=== PATIENT | male | born 2000 | race Caucasian/White ===

== ENCOUNTER 2023-11-04 22:38 | Emergency (ER) | payer MEDICAID ==
[~2023-11-04] VITALS: Ht 182.9 cm; Wt 91.0 kg
[2023-11-04 22:47] VITALS: BP 110/66; TEMP 99.4; O2SAT 100
[2023-11-04 22:51] VITALS: PULSE 80; RESP 20
[2023-11-04 23:27] LABS: BASOPHILS % 0.3 % (0.0-2.0); EOSINOPHILS % 1.3 % (0.0-5.0); HEMOGLOBIN. 14.7 g/dL (14.0-18.0); MEAN CORPUSCULAR HGB CONC 34.3 g/dL (31.0-37.0); MEAN CORPUSCULAR VOLUME 87.5 fL (80.0-94.0); MEAN PLATELET VOLUME 8.3 fl (7.4-10.4); MONOCYTES % 11.2 % (2.0-8.0); NEUTROPHILS % 64.2 % (40.0-76.0); PLATELET 262 x1000/uL (130-400); RED BLOOD CELL COUNT 4.91 mill/uL (4.7-6.1); RED CELL DISTRIBUTION WIDTH 12.8 % (11.6-14.6); WHITE BLOOD COUNT 6.2 x1000/uL (4.5-11.0)
[2023-11-04 23:31] LABS: CHLORIDE 106 mEq/L (98-107); POTASSIUM 4.8 mEq/L (3.5-5.1); SODIUM 136 mEq/L (136-145)
[2023-11-04 23:32] LABS: CARBON DIOXIDE 26 mEq/L (21-32)
[2023-11-04 23:33] LABS: CALCIUM 9.6 mg/dL (8.7-10.4)
[2023-11-04 23:37] LABS: CREATININE 1.1 mg/dL (0.6-1.3)
[2023-11-04 23:38] LABS: GLUCOSE 89 mg/dL (70-105); UREA NITROGEN BLOOD 13 mg/dL (9-23)
[2023-11-04 23:39] LABS: ALANINE AMINOTRANSFERASE 24 IU/L (10-49); ALBUMIN 4.5 g/dL (3.2-4.8); ASPARTATE AMINOTRANSFERASE 17 IU/L (<34)
[2023-11-04 23:40] LABS: BILIRUBIN TOTAL 0.9 mg/dL (0.1-1.0); PROTEIN TOTAL 6.7 g/dL (6.0-8.3)
[2023-11-04] MEDS ORDERED: ONDANSETRON HCL 4MG TABLET PO ONE (23:45)
[2023-11-05] MEDS ORDERED: TOPUD PO (00:21)
[2023-11-05] MEDS ORDERED: ONDA4TAB50 PO (00:21)
[2023-11-05 00:38] LABS: CLARITY URINE CLEAR (CLEAR); COLOR URINE YELLOW (YELLOW); GLUCOSE URINE NEGATIVE (NEGATIVE); KETONES URINE NEGATIVE (NEGATIVE); LEUKOCYTE ESTERASE URINE NEGATIVE (NEGATIVE); NITRITE URINE NEGATIVE (NEGATIVE); OCCULT BLOOD URINE TRACE (NEGATIVE); PH URINE 5.5 (4.5-8.0); PROTEIN URINE NEGATIVE (NEGATIVE); SPECIFIC GRAVITY URINE 1.019 (1.005-1.030)
[2023-11-05 01:46] LABS: BACTERIA URINE NONE SEEN; RBC URINE 0-2 /hpf (0-2); WBC URINE 0-2 /hpf (0-2)
[2023-11-05 01:47] LABS: MUCUS URINE TRACE /lpf (NONE/TRACE); SQUAMOUS EPITHELIAL CELL URINE RARE /lpf (RARE/1+)
== END 2023-11-05 01:23 | disposition home or self-care (01) ==
LOC: EDBD 22:38 → ER 22:38
DX: B34.9 Viral infection, unspecified (principal)
CPT/HCPCS: 99284; 71045; 80053; 81003; 85025; 36415; Q0162